=== PATIENT | male | born 1960 | race African-American/Black ===

== ENCOUNTER 2020-08-23 14:35 | Emergency (ER) | payer BC, SELFPAY ==
[2020-08-23] VITALS (16 sets, daily range): BP systolic 110–158; BP diastolic 60–93; PULSE 83–106; RESP 13–33; TEMP 36.6; O2SAT 81–100
--- NOTE | ~2020-08-23 | CT_ITS ---
EXAMINATION: CT brain wo con DATE: 08/23/2020 18:02 INDICATION: Gait disturbance TECHNIQUE: Computed tomography (CT) of the head was performed without intravenous contrast. Sagittal and coronal reconstructions were performed. The mA was adjusted according to patient size. Iterative reconstruction technique was employed. The dose-length product was 605.33 mGy-cm. COMPARISON: None FINDINGS: No acute intracranial hemorrhage, acute infarction or abnormal extra axial fluid collection. Ventricl es are normal and symmetric. No mass/mass effect. There is mild scattered white matter hypoattenuatio n consistent with chronic small vessel ischemic disease. Chronic blowout fracture involving the media l wall of the left orbit. Mucosal thickening in the right ethmoid sinus and visualized upper portion of the right maxillary sinus. Mastoid air cells and middle ear cavities are clear. Debris/cerumen at the bilateral external auditory canals. IMPRESSION: 1. No acute intracranial process. 2. Mild scattered white matter hypoattenuation consistent with chronic small vessel ischemic disease. Reviewed, dictated and finalized at [facility]. ACTIONS TECHNICIAN IMPRESSION: 1. No acute intracranial process. 2. Mild scattered white matter hypoattenuation consistent with chronic small ve ssel ischemic disease.
--- NOTE | 2020-08-23 15:29 | ED.ANXIETY ---
HPI - Anxiety General Chief Complaint: Anxiety Stated Complaint: FALL Time Seen by Provider: 08/23/20 14:53 History of Present Illness HPI narrative: History limited due to poor historian He reports that he is here for dizziness and falls. He says that he has been dizzy and falling for weeks. He says that he frequently goes days without eating. He says that he is not taking care of himself recently due to multiple recent deaths within his family. He does drink alcohol frequently. No CP, SOB, fever Related Data Home Medications Medication Instructions Recorded Confirmed No Home Medications 08/23/20 08/23/20 Allergies Allergy/AdvReac Type Severity Reaction Status Date / Time No Known Allergies Allergy Verified 08/23/20 14:43 Review of Systems Review of Systems: All systems reviewed & are unremarkable except as noted in HPI and below Constitutional: Constitutional: Denies fever(s) Cardiovascular: Cardiovascular: Denies chest pain Respiratory: Respiratory: Denies dyspnea Gastrointestinal: Gastrointestinal: Denies abdominal pain, Denies nausea and Denies vomiting Genitourinary: Genitourinary: Denies hematuria and Denies dysuria Musculoskeletal: Musculoskeletal: Denies back pain Neurologic: Reports dizziness, Denies headache(s) and Reports weakness Psychiatric: Psychiatric: Reports anxiety [facility] Past Medical History Medical History (Updated 08/23/20 @ 19:21 by Chris Loomis MD) Healthy adult Social History Social History Gender identity (if verbalized by the patient): Male Exam Const: General: healthy appearing, no acute distress and alert Orientation/consciousness: patient oriented x3 HENMT: Mouth: Yes dry mucous membranes Eyes: Pupils: Equal, round and reactive pupils present Resp: Effort & Inspection: normal respiratory effort Auscultation: clear to auscultation bilaterally Cardio: Rate: regular rate Rhythm: regular rhythm GI: GI Palp: Yes Soft to palpation and Yes Tenderness to palpation present (GI) Skin: General skin exam: normal color Neuro: General: patient oriented x3, moves all extremities, no focal motor deficits and CN's II-XI intact bilaterally Speech: normal speech Gait exam (Neuro): Normal gait present Extrem: General: normal to inspection and edema Psych: Appearance: grossly normal Affect: Anxious affect present Course Vital Signs Vital signs: Vital Signs Temperature 36.6 C 08/23/20 14:39 Pulse Rate 94 08/23/20 14:39 Respiratory Rate 17 08/23/20 14:39 Blood Pressure 158/93 H 08/23/20 14:39 Pulse Oximetry 100 08/23/20 14:39 Temperature 36.6 C 08/23/20 14:39 Pulse Rate 86 08/23/20 18:31 Respiratory Rate 16 08/23/20 18:31 Blood Pressure 110/60 08/23/20 18:31 Pulse Oximetry 97 08/23/20 18:31 MDM - Anxiety Differential Diagnosis Differential diagnosis: Likely other (anxiety, depression, dehydration, alcohol abuse ) Medical Records Attestation: I reviewed the patient's medical records. Lab Data Attestation: I reviewed the patient's lab results. Result diagrams: 08/23/20 15:36 08/23/20 15:52 Labs: Lab Results 08/23/20 08/23/20 08/23/20 Range/Units 15:36 15:52 16:00 WBC 4.6 (4.5-10.0) K/mm3 RBC 4.62 (4.6-6.20) M/mm3 Hgb 14.6 (14.0-18.0) g/dL Hct 42.1 (42.0-52.0) % MCV 91.1 (80-100) fl MCH 31.6 (26-34) pg MCHC 34.7 (32-36) g/dl RDW 14.5 (11.5-14.5) % Plt Count 160 (150-375) k/mm3 MPV 9.6 (7.4-10.4) fl Immature Gran % (Auto) 0.2 (0-0.5) % Neut % (Auto) 58.2 (45.5-73.1) % Lymph % (Auto) 30.4 (18.3-44.2) % Archuleta % (Auto) 10.1 H (2.6-8.5) % Eos % (Auto) 0.2 (0-4.4) % Baso % (Auto) 0.9 (0.2-1.2) % Lymph # (Auto) 1.41 (0.9-3.2) K/mm3 Archuleta # (Auto) 0.5 (0.1-0.6) K/mm3 Eos # (Auto) 0.0 (0-0.3) K/mm3 Baso # (Auto) 0.0 (0.0-0.1) K/mm3 Abs Immat Gran (auto) 0.01 (0.00-0.031) K/mm
[2020-08-23] MEDS: SODIUM CHLORIDE 0.9% IV 1,000 ML 999 ML IV CONT ×2 (15:39→15:40)
[2020-08-23 15:42] LABS: Basophils Percent Auto 0.9 % (0.2-1.2); Eosinophils Percent Auto 0.2 % (0-4.4); Hematocrit 42.1 % (42.0-52.0); Hemoglobin 14.6 g/dL (14.0-18.0); Immature Granulocyte Absolute 0.01 K/mm3 (0.00-0.031); Immature Granulocyte Percent A 0.2 % (0-0.5); Lymphocytes Absolute Auto 1.41 K/mm3 (0.9-3.2); Lymphocytes Percent Auto 30.4 % (18.3-44.2); Mean Corpuscular HGB Conc 34.7 g/dl (32-36); Mean Corpuscular Hemoglobin 31.6 pg (26-34); Mean Corpuscular Volume 91.1 fl (80-100); Mean Platelet Volume 9.6 fl (7.4-10.4); Monocytes Absolute Auto 0.5 K/mm3 (0.1-0.6); Monocytes Percent Auto 10.1 % (2.6-8.5); Neutrophils Absolute Auto 2.7 K/mm3 (1.3-6.7); Neutrophils Percent Auto 58.2 % (45.5-73.1); Platelet Count Result 160 k/mm3 (150-375); Red Blood Count 4.62 M/mm3 (4.6-6.20); Red Cell Distribution Width 14.5 % (11.5-14.5); White Blood Count 4.6 K/mm3 (4.5-10.0)
[2020-08-23 16:11] LABS: Alanine Aminotransferase 55 U/L (4-50); Albumin Level 4.6 g/dL (3.5-5.1); Alkaline Phosphatase 109 U/L (38-126); Anion Gap 19 mmol/L (8-16); Aspartate Amino Transferase 101 U/L (17-59); Bilirubin,Total 0.8 mg/dL (0.2-1.3); Blood Urea Nitrogen 8 mg/dL (9-20); Calcium 9.1 mg/dL (8.4-10.2); Carbon Dioxide 24 mmol/L (22-30); Chloride 103 mmol/L (98-107); Estimated CRCL calculation 73 ml/min; Estimated Glomerular Filt Rate > 60; Glucose 84 mg/dL (75-110); Potassium 4.2 mmol/L (3.4-5.0); Sodium 146 mmol/L (137-145)
[2020-08-23 16:12] LABS: Add Urine Microscopic? YES; Appearance Urine Clear (Clear); Bacteria Urine Trace /hpf; Bilirubin Urine Negative (Negative); Blood Urine 1+ (Negative); Color Urine Straw (Yellow); Glucose Urine UA Negative (Negative); Ketones Urine Trace mg/dL (Negative); Leukocyte Esterase Ur Negative LEU/UL (Negative); Mucus Urine Rare /lpf; Nitrate Urine Negative (Negative); Protein Urine Negative (Negative); RBC Urine 0-2 /hpf (0-2); Specific Grav Ur 1.008 (1.001-1.035); Urobilinogen Urine Negative mg/dL (<2.0); WBC Urine 0-3 /hpf
--- NOTE | 2020-08-23 16:22 | PC.NURSE ---
Dinner tray given po.
--- NOTE | 2020-08-23 18:08 | PC.NURSE ---
Pt returns from CT. Pt yells out in pain, states has pain to his back and hips.
--- NOTE | 2020-08-23 19:13 | PC.NURSE ---
PATIENT AMBULATED WITHOUT ASSISTANCE WITH STEADY GAIT.
--- NOTE | 2020-08-23 19:14 | PC.NURSE ---
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 States is feeling better.
--- NOTE | 2020-08-23 19:14 | PC.NURSE ---
Report to MONTRELL Mauricio, to continue care.
== END 2020-08-23 19:37 | disposition home or self-care (01) ==
PROVIDERS: Emergency Provider Emergency Medicine
DX: E86.0 Dehydration (principal)
CPT/HCPCS: 36415; 70450; 80053; 81001; 85025; 96360; 96361; 99284; J7030